=== PATIENT | female | born 1970 | race Caucasian/White ===

== ENCOUNTER 2020-09-11 13:08 | Outpatient (CLI) | payer BC, SELFPAY ==
--- NOTE | ~2020-09-11 | XR_ITS ---
XR abdomen/kub 1V DATE: 09/11/2020 13:31 INDICATION: Right ureteral calculus TECHNIQUE: AP projection, 2 views COMPARISON: 10/06/2014 KUB FINDINGS: There are numerous calcifications overlying the left upper, mid and lower kidney. Faint calcific densities overlying the upper and lower poles of the right kidney might be a renal karen gin or possibly within the bowel lumen. Noncontrast CT abdomen pelvis examination would be much more accurate for evaluation of urinary tract calculi. Associated as are intact. No visceromegaly is evident. There is no evidence of bowel obstruction. Surgical clips, right upper quadrant, consistent with cholecystectomy. IMPRESSION: Nephrolithiasis is suggested, primarily on the left Reviewed, dictated and finalized at [facility]. Reviewed, dictated and finalized at [facility].
== END 2020-09-11 13:09 | disposition home or self-care (01) ==
LOC: ANHIMG 13:19
PROVIDERS: Visit Provider Urology
DX: N20.1 Calculus of ureter (principal)
CPT/HCPCS: 74018

== ENCOUNTER 2021-11-29 01:21 | Day surgery (SDC) | payer BC, SELFPAY ==
--- NOTE | 2021-11-26 07:35 | P.HP_ITS ---
History of Present Illness History of Present Illness Consent: Risks, benefits, and alternatives have been discussed and questions answered. Patient agrees to proceed with procedure. 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 She underwent recent extraction of a right distal ureteral calculus endoscopically. She has a residual small 2 mm stone in the right kidney that we have opted not to intervene for at this point. She does have a recent CT scan at [facility] that shows a 5-6 mm left renal calculus. After discussion of options she has elected to proceed with left ESWL. She is aware of the risk including, limited to, adverse cardiopulmonary events, renal injury with perinephric hematoma, hematuria and persistent stone fragments. Review of Systems Cardiovascular: Cardiovascular: Denies chest pain, Denies lightheadedness, Denies palpitations and Denies dyspnea Respiratory: Respiratory: Denies dyspnea Gastrointestinal: Gastrointestinal: Denies diarrhea, Denies nausea and Denies vomiting Genitourinary: Genitourinary: Denies hematuria and Denies dysuria Endocrine: Endocrine: Denies palpitations Meds Home Medications and Allergies Allergies Allergy/AdvReac Type Severity Reaction Status Date / Time No Known Allergies Allergy Unverified 09/21/14 18:46 Exam Const: General: no acute distress Resp: Effort & Inspection: normal respiratory effort GI: Inspection: non-distended GI Palp: No abdominal tenderness and No Guarding due to palpation present (GI) Auscultation: normal bowel sounds Assessment and Plan Assessment and plan (1) Bilateral renal stones: Code(s): N20.0 - Calculus of kidney Status: Acute Assessment and Plan: * Left ESWL
[2021-11-28 15:08] VITALS: BMI 24.2
--- NOTE | 2021-11-28 15:17 | PC.NURSE ---
Report to the Outpatient Waiting Room, entrance under the green pavilion located off [facility], at time 0600 on date 11/29/21. OR Time: 0730. - You and your visitor will be asked a series of questions to screen for COVID 19 for your protection. - Only one visitor is allowed at this time. - The patient visitor is requested to leave or wait in car when not with patient. - A mask is required within the hospital. Patients may have clear liquids (water, carbonated beverages, clear teas, apple juice) until 3 hours prior to surgery with a maximum of 20 ounces. - No food from midnight until time of surgery - Infants may have breast milk until 4 hours before surgery, infant formula 6 hours prior to surgery. - Children will be allowed to drink immediately following surgery. If applicable, please bring a bottle or sippy cup to assist with drinking. Juice, water, soda, and popsicles are readily available. For infants on formula, please bring formula the day of surgery. Pacifiers are allowed. Take the following medications with a SIP of water the morning of surgery: NONE Medications to discontinue per physician: VITAMINS/SUPPLEMENTS Date to take last dose: NO MORE UNTIL AFTER SURGERY Please no make-up, nail wolof, hairspray, perfume, deodorant, or body powder the day of surgery. No jewelry (including any body piercings) or valuables the day of surgery, leave them at home. Please take a shower or bath the night before, or the morning of, surgery with an antibacterial soap. Wear comfortable, loose fitting clothing. Children are encouraged to wear pajamas. - Jewelry must be removed prior to entering the operating room. Rings and piercings that are not removed may be cut off. - The hospital will not accept responsibility for valuables. - Please leave all valuables, including medications, at home the day of surgery. If you are going home after surgery, a licensed race car driver must drive you home. - NO public transportation without another adult. - We recommend that an adult stay with you for 24 hours following discharge. - We also recommend that you do not drive, make important decision, drink alcoholic beverages, or take any drugs that were not prescribed by your health care provider for at least 24 hours after your discharge time. For Pediatric surgeries, we recommend two adults accompany the child home (only one inside the building at this time). Follow any additional instructions given to you from your surgeon. If you or anyone in your household have experienced Covid symptoms in the past week, please notify your surgeon or the nurse liaison at the phone number below for possible testing. Telephone instructions given to PT - GONZALO IRVIN and asked if any additional questions and then verbalized understanding. Patient advised to call surgeon office or pre surgery nurse liaison [phone] if any additional questions.
[2021-11-29] VITALS (9 sets, daily range): BP systolic 91–148; BP diastolic 59–91; PULSE 69–105; RESP 12–20; TEMP 36.1–36.3; O2SAT 98–100
--- NOTE | ~2021-11-29 | XR_ITS ---
XR abdomen/kub 1V 11/29/2021 06:28 Indication: Renal stones Procedure: KUB Comparison: Comparison to multiple prior studies sequentially, with oldest reviewed study dated 08/16 Findings: there are bilateral renal stones, more numerous on the left. There are multiple pelvic phle boliths. Bowel gas pattern nonobstructive. Lung bases unremarkable. No acute osseous abnormality. The re are cholecystectomy clips.. Impression: 1: Bilateral nephrolithiasis. Reviewed, dictated and finalized at location [facility]. Impression: 1: Bilateral nephrolithiasis.
--- NOTE | 2021-11-29 06:18 | WPDHPUPDATE1 ---
History and Physical Update Update Date/Time: 11/29/21 06:18 History and Physical has been reviewed, including an updated exam of the patient. There are NO changes in the patient's condition. Risks, benefits, and alternatives have been discussed and questions answered. Patient agrees to proceed with procedure.
[2021-11-29 06:43] LABS: Appearance Urine Clear (Clear); Bilirubin Urine Negative (Negative); Blood Urine 1+ (Negative); Color Urine Yellow (Yellow); Glucose Urine UA Negative (Negative); Ketones Urine Negative (Negative); Leukocyte Esterase Ur 1+ LEU/UL (Negative); Nitrate Urine Negative (Negative); Protein Urine Negative (Negative); Specific Grav Ur 1.025 (1.001-1.035); Urobilinogen Urine 0.2 mg/dL (<2.0)
[2021-11-29] MEDS: LACTATED RINGERS 1,000 ML 30 ML IV CONT ×2 (06:45→08:10)
--- NOTE | 2021-11-29 06:47 | P.PNAN_ITS ---
Anes - Initial Pre Proc Eval Procedure: Operation Date: 11/29/21 07:30 Proposed Procedures p Left Extracorporeal Shock Wave Lithotripsy - Varun Mancini MD Date/Time: 11/29/21 06:47 Surgeon: Varun Mancini MD Pre Op Diagnosis: Left Ureteral Stone Patient Data Age: 51 Gender: F Height: 1.61 m Weight: 63.05 kg Allergies Allergy/AdvReac Type Severity Reaction Status Date / Time Sulfa (Sulfonamide Allergy Intermediate TACHYCARDIA Verified 11/29/21 06:40 Antibiotics) tamsulosin [From Flomax] Allergy Intermediate TACHYCARDIA Verified 11/29/21 06:39 Home Medications Medication Instructions Recorded Confirmed Type metoprolol succinate 25 mg 25 mg PO HS ANXIETY 11/28/21 11/29/21 History tablet,extended release 24 hr potassium citrate 10 mEq (1,080 10 meq PO BID 11/28/21 11/29/21 History mg) tablet,extended release sertraline 100 mg tablet 100 mg PO HS 11/28/21 11/29/21 History Laboratory Tests 11/29/21 06:28 Urine Color Yellow (Yellow) Urine Appearance Clear (Clear) Urine pH 6.0 (5.0-9.0) Ur Specific [place] 1.025 (1.001-1.035) Urine Protein Negative mg/dL mg/dL (Negative) Urine Glucose (UA) Negative mg/dL mg/dL (Negative) Urine Ketones Negative mg/dL mg/dL (Negative) Ur Blood (Man) 1+ H (Negative) Urine Nitrate Negative (Negative) Urine Bilirubin Negative (Negative) Urine Urobilinogen 0.2 mg/dL mg/dL (<2.0) Leukocyte Esterase Rfl 1+ TREVOR/UL H TREVOR/UL (Negative) Patient hx anesthesia problems: none Family hx anesthesia problems: post op nausea/vomiting Results Review: All pre-operative results and documents have been reviewed as part of the pre- operative evaluation. COUNT INCLUDES THE [facility] Past Medical History Medical History Anxiety Social History Social History Smoking status: Never smoker Alcohol intake: never Substance use: never Substance use type: does not use Living arrangements: with family Spiritual care concerns: No Anes - Eval Final PreProcedure Day of Procedure 11/29/21 06:47 Patient weight: normal Heart: regular rate and rhythm Lungs: clear to auscultation Airway: Mallampati scale class II Neurological: alert and oriented Last oral intake: >/= 8 hours ASA classification: II Emergent: no Anesthetic plan: proceed Anesthesia type and monitoring: general LMA Results Review: All pre-operative results and documents have been reviewed as part of the pre- operative evaluation. Informed Consent: The patient's anesthetic plan and its attendant risks and benefits were discussed with the patient/family/POA. Questions were solicited and answers provided to the satisfaction of the patient/family/POA.
[2021-11-29 06:49] LABS: Calcium Oxalate Crystals Urine Present /hpf; Mucus Urine Rare /lpf; RBC Urine 21-50 /hpf (0-2); Squamous Epithelial Cell Urine Occasional /hpf (Few); WBC Urine 21-30 /hpf
[2021-11-29 06:52] LABS: Add Urine Microscopic? YES
[2021-11-29] MEDS: SCOPOLAMINE 1.5 MG PATCH TRANSDERM (06:53)
[2021-11-29 07:08] LABS: Prothrombin Time 12.5 Seconds (11.1-14.7)
[2021-11-29] MEDS: ceFAZolin 2 GM/D5W 50 ML 2 GM/50 ML BAG IVPB (07:23)
[2021-11-29] MEDS: KETOROLAC 30 MG/ML VIAL (*BKC) IV PUSH (07:59)
--- NOTE | 2021-11-29 08:16 | W.PM.PROC2 ---
Procedure Note - Detailed Date of Procedure 11/29/21 Pre-op Diagnosis Left Renal Stones Post-op Diagnosis Same Procedure Performed Left ESWL Surgeon Varun Mancini MD Description of Procedure The patient was brought to the operative suite where she was placed in the supine position on the Dornier lithotripsy table. focal point of the Lithotripter was placed 1st at a 5-6 mm stone in the left upper pole calyx. After about 1800 shocks stone appeared to fragment very nicely and an additional 700 shocks were delivered to a collection of smaller stone fragments in a mid pole calyx. A total of 2500 shocks were delivered at a power setting of 2. There appeared to be good fragmentation of the stone. The patient tolerated the procedure well and was taken to the recovery room in good condition. Pathology None sent Complications No immediate complications Condition Stable Disposition PACU
== END 2021-11-29 09:58 | disposition home or self-care (01) ==
PROVIDERS: PCP Pediatrics; Visit Provider Urology
PROC: (CPT 50590; principal; 2021-11-29 07:30)
DX: N20.0 Calculus of kidney (principal); F41.9 Anxiety disorder, unspecified
CPT/HCPCS: 50590; 36415; 74018; 81001; 85610; 85730; 87086; A9270; J0690; J1100; J1885; J2250; J2405; J2704; J3010; J7120

== ENCOUNTER 2021-12-13 11:33 | Outpatient (CLI) | payer BC, SELFPAY ==
--- NOTE | ~2021-12-13 | XR_ITS ---
EXAM: XR abdomen/kub 1V DATE: 12/13/2021 11:49 HISTORY: N20.0 - Calculus of kidney, FOLLOW UP LITHOTRIPSY 2 WKS AGO . COMPARISON: 11/29/2021. FINDINGS: Cholecystectomy clips. Clear lung bases. Normal bowel gas pattern. No organomegaly. Multip le bilateral renal calculi, more numerous on the left. Multiple pelvic phleboliths. Degenerative lumb ar and hip changes. Soft tissues normal for age. IMPRESSION: Bilateral nephrolithiasis. Reviewed, dictated and finalized at location [facility]. IMPRESSION: Bilateral nephrolithiasis.
== END 2021-12-13 11:34 | disposition home or self-care (01) ==
PROVIDERS: PCP Pediatrics; Visit Provider Urology
DX: N20.0 Calculus of kidney (principal)
CPT/HCPCS: 74018